=== PATIENT | male | born 1995 | race Caucasian/White ===

== ENCOUNTER 2020-08-03 09:51 | Emergency (ER) | payer SELFPAY ==
[~2020-08-03] VITALS: Ht 198.1 cm; Wt 84.6 kg
--- NOTE | 2020-08-03 10:28 | NUR ---
first contact with pt. pt c/o bloody stool since yesterday. pt c/o all quadrants abd painas well. denies n/v/d. pt's aox4. resps even and unlabored. bp/spo2 monitors in place. clal light within reach. edmd at bedside for evaluation.
[2020-08-03 10:43] LABS: BASOPHILS % (AUTO) 1 % (0-1); EOSINOPHILS % (AUTO) 3 % (1-7); LYMPHOCYTES % (AUTO) 20 % (22-44); MEAN CORPUSCULAR HEMOGLOBIN 31.7 pg (27.5-34.5); MEAN CORPUSCULAR HGB CONC 34.1 g/dL (33.2-36.2); MEAN PLATELET VOLUME 8.5 fL (7.4-10.4); MONOCYTES % (AUTO) 10 % (2-9); NEUTROPHILS % (AUTO) 66 % (42-75); PLATELET COUNT 195 x10^3/uL (130-400); RED BLOOD COUNT 4.37 x10^6/uL (4.38-5.82); RED CELL DISTRIBUTION WIDTH 14.1 % (9.4-14.8)
[2020-08-03 10:44] LABS: MD NO
[2020-08-03 10:52] LABS: ALANINE AMINOTRANSFERASE 40 U/L (12-78); ALBUMIN 4.2 g/dL (3.4-5.0); ANION GAP 4 mmol/L (5-15); CHLORIDE 104 mmol/L (98-107)
[2020-08-03 10:54] LABS: ALKALINE PHOSPHATASE 69 U/L (45-117); BILIRUBIN,TOTAL 0.5 mg/dL (0.2-1.0); CREATININE 0.88 mg/dL (0.7-1.3); TOTAL PROTEIN 7.3 g/dL (6.4-8.2)
--- NOTE | 2020-08-03 11:03 | NUR ---
pt resting in [facility]. pt's aox4. resps even and unlabored. bp/spo2 monitors in place. call light within reach.
--- NOTE | 2020-08-03 11:07 | NUR ---
pt to ct at this time.
--- NOTE | 2020-08-03 11:21 | NUR ---
pt back to room from ct at this time.
[2020-08-03] MEDS ORDERED: OMNIPAQUE 350 MG/ML, 100ML BOTTLE ONE (11:22)
--- NOTE | 2020-08-03 11:39 | NUR ---
BEDSIDE FOR RECHECK
[2020-08-03 12:31] VITALS: BP 130/72
--- NOTE | 2020-08-03 12:40 | NUR ---
Patient given discharge instructions and they have confirmed that they understand the instructions. Patient ambulatory with steady gait.
== END 2020-08-03 12:41 | disposition home or self-care (01) ==
LOC: ED 10:58
DX: K62.5 Hemorrhage of anus and rectum (principal); R10.33 Periumbilical pain
CPT/HCPCS: 36415; 74177; 80053; 85025; 99285; Q9967